=== PATIENT | male | born 1985 | race Caucasian/White ===

== ENCOUNTER 2019-09-08 04:19 | Emergency (ER) | payer OTHER ==
[~2019-09-08] VITALS: Ht 182.9 cm; Wt 95.3 kg
[2019-09-08 04:45] VITALS: BP 128/70
== END 2019-09-08 04:45 | disposition home or self-care (01) ==
LOC: ED 04:19
DX: S51.811A Laceration without foreign body of right forearm, initial encounter (principal); W45.8XXA Other foreign body or object entering through skin, initial encounter; Y93.89 Activity, other specified; Y92.89 Other specified places as the place of occurrence of the external cause; Y99.8 Other external cause status
CPT/HCPCS: 90715